=== PATIENT | male | born 1955 | race Asian ===

== ENCOUNTER 2022-02-10 08:58 | Emergency (ER) | payer OTHER ==
[~2022-02-10] VITALS: Ht 180.3 cm; Wt 59.9 kg
--- NOTE | 2022-02-10 09:06 | NUR ---
DR KOVACS AT BEDSIDE ASSESSING PT
[2022-02-10 09:07] VITALS: BP 191/90
--- NOTE | 2022-02-10 09:10 | NUR ---
TRANSLATION PHONE USED FOR MANDARIN FOR PATIENT TRIAGE AND ASSESSMENT. PIN #[id number]
[2022-02-10] MEDS ORDERED: ONDANSETRON 4 MG/2 ML VIAL IVP ONE (09:15)
--- NOTE | 2022-02-10 09:41 | NUR ---
Pt taken to CT via [facility].
[2022-02-10 09:43] LABS: BASOPHILS % (AUTO) 0.7 % (0.0-2.0); EOSINOPHILS # (AUTO) 0.2 K/uL (0-0.4); EOSINOPHILS % (AUTO) 3.7 % (0.0-4.0); HEMATOCRIT 41.1 % (36-52); HEMOGLOBIN 13.9 g/dL (12.0-18.0); LYMPHOCYTES # (AUTO) 0.9 K/uL (2.0-11.5); MEAN CORPUSCULAR HEMOGLOBIN 33 pg (27-31); MEAN CORPUSCULAR HGB CONC 34 g/dL (33-37); MEAN CORPUSCULAR VOLUME 98.5 fL (80-94); MONOCYTES # (AUTO) 0.3 K/uL (0.8-1.0); MONOCYTES % (AUTO) 7.1 % (1.7-9.3); NEUTROPHILS # (AUTO) 3.4 K/uL (1.8-7.7); NEUTROPHILS % (AUTO) 70.5 % (42.2-75.2); PLATELET COUNT (AUTO) 85 K/uL (140-450); RED BLOOD CELL COUNT(AUTO) 4.17 MIL/uL (4.20-6.10); WHITE BLOOD COUNT (AUTO) 4.8 K/uL (4.8-10.8)
--- NOTE | 2022-02-10 09:53 | NUR ---
66/M MARYJANE FROM [facility]. PER EMS STAFF CALLED 911 STATING PATIENT BECAME ALTERED AND HAD AN EPISODE OF VOMITING S/P COMPLETION OF DIALYSIS. PER STAFF PATIENT IS USUALLY AOX4, GCS 15. UPON ARRIVAL TO ED PATIENT IS DIAPHORETIC, HAD ONE MORE EPISODE OF VOMITING. PATIENT ANSWERING QUESTIONS WITH THE USE OF TRANSLATION PHONE. 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 DR. REAL ASSESSING PATIENT UPON ARRIVAL.
--- NOTE | 2022-02-10 09:53 | NUR ---
PT RETURNED FROM CT.
[2022-02-10] MEDS ORDERED: VITA-16 PO (10:01)
[2022-02-10] MEDS ORDERED: ATOR20TA PO (10:01)
[2022-02-10] MEDS ORDERED: CALC667T8 PO (10:01)
[2022-02-10] MEDS ORDERED: MULT-1469 PO (10:01)
[2022-02-10] MEDS ORDERED: PATI8.4P PO (10:01)
[2022-02-10] MEDS ORDERED: SEVE800T6 PO (10:01)
[2022-02-10] MEDS ORDERED: CARV6.252 PO (10:01)
[2022-02-10 10:10] LABS: ALBUMIN 4.2 g/dL (3.4-5.0); ANION GAP 14.9 (8-16); ASPARTATE AMINOTRANSFERASE 34 U/L (15-37); CHLORIDE 94 mmol/L (98-107); GFR ARICAN-AMERICAN 13 mL/min (>90); GLUCOSE 141 mg/dL (74-106); SODIUM SERUM 138 mmol/L (136-145); TOTAL BILIRUBIN 0.6 mg/dL (0.0-1.0); UREA NITROGEN, BLOOD 28 mg/dL (7-18)
[2022-02-10 10:14] LABS: POTASSIUM 2.9 mmol/L (3.5-5.1)
[2022-02-10 10:15] LABS: CREATININE 5.6 mg/dL (0.6-1.3)
[2022-02-10 11:01] LABS: CKMB RELATIVE INDEX 0.9 (0.0-2.5); CREATINE KINASE MB 3.5 ng/mL (0-3.6)
--- NOTE | 2022-02-10 11:13 | NUR ---
PT SWABBED FOR COVID . SPECIMEN WALKED TO LAB. HANDED TO CAT[place].
[2022-02-10] MEDS ORDERED: POTASSIUM CHLORIDE 20% 40 MEQ/15 ML UDC PO ONE (11:15)
--- NOTE | 2022-02-10 11:20 | NUR ---
SPOKE WITH PATIENTS SISTER, STATED SHE IN ON THE WAY TO SEE PATIENT.
--- NOTE | 2022-02-10 11:35 | NUR ---
PATIENTS FAMILY BEDSIDE SPEAKING WITH DR. REAL.
--- NOTE | 2022-02-10 11:59 | NUR ---
IV removed, catheter intact and site benign. Applied folded 4x4 gauze and tape to stop bleeding.
[2022-02-10 12:00] VITALS: BP 182/92
--- NOTE | 2022-02-10 12:00 | NUR ---
Patient does not wish to proceed with medical care recommended by DR. REAL. Patient given information related to possible complications, up to and including , which could occur as a result of leaving hospital at this time. Patient verbalizes understanding of risks involved leaving against medical advice. Patient has signed AMA form.
--- NOTE | 2022-02-10 12:05 | NUR ---
The patient's care was reviewed and supervised by Massiel Flanagan RN.
== END 2022-02-10 12:00 | disposition left against medical advice (07) ==
LOC: MED 08:58
DX: R41.82 Altered mental status, unspecified (principal); Z20.822 Contact with and (suspected) exposure to COVID-19; I10 Essential (primary) hypertension; E87.6 Hypokalemia; Z79.899 Other long term (current) drug therapy
CPT/HCPCS: 36415; 70450; 71045; 80053; 82550; 82553; 84484; 85025; 87426; 93005; 96374; 99285; G0482; J2405; Q0092